=== PATIENT | female | born 1990 | race Caucasian/White ===

== ENCOUNTER 2021-12-12 00:12 | Inpatient (IN) ==
[2021-12-12] MEDS ORDERED: CARBOPROST TROMETHAMINE 250 MCG/ML AMP IM PRN (00:33)
[2021-12-12] MEDS ORDERED: TRANEXAMIC ACID 1,000 MG in SODIUM CHLORIDE 0.9% 100 ML IV PRN (00:33)
[2021-12-12] MEDS ORDERED: ONDANSETRON 4 MG/2 ML VIAL IV PRN (00:33)
[2021-12-12] MEDS ORDERED: miSOPROStoL 200 MCG TABLET RECTAL PRN (00:33)
[2021-12-12] MEDS ORDERED: LACTATED RINGERS 250 ML IV ONE (00:33)
[2021-12-12] MEDS ORDERED: METHYLERGONOVINE 0.2 MG/1 ML AMP IM PRN (00:33)
[2021-12-12] MEDS ORDERED: LACTATED RINGERS 500 ML IV PRN (00:33)
[2021-12-12] MEDS ORDERED: OXYTOCIN/LR 20 UNIT/1,000 ML BAG IV ONE ×3 (00:33→20:56)
[2021-12-12 00:49] LABS: Basophils # 0.1 10*3/uL (0.0-0.2); Basophils % 0.5 % (0.0-0.8); Eosinophils # 0.1 10*3/uL (0.0-0.87); Eosinophils % 0.4 % (0.00-10.9); Hematocrit 35.1 VOL% (35.7-47.0); Hemoglobin 11.8 GM/DL (12.0-16.0); Immature Granulocytes % 0.5 %; Immature Granulocytes Absolute 0.07 #; Lymphocytes # 3.5 10*3/uL (1.4-4.0); Mean Corpuscular HGB Conc 33.6 GM/DL (32-36); Mean Corpuscular Volume 96.7 FL (87-102); Mean Platelet Volume 10.4 FL (9.6-12.0); Monocytes # 0.7 10*3/uL (0.11-0.8); Monocytes % 5.1 % (1.7-12.7); Neutrophils % 68.5 % (38.7-73.9); Platelet Count 253 T/CUMM (130-400); Red Blood Count 3.63 MC/CUMM (3.8-5.5); Red Cell Distribution Width 13.5 % (9.3-17.3); White Blood Count 13.9 T/CUMM (4-12)
[2021-12-12] MEDS: LACTATED RINGERS 1,000 ML IV SCH ×5 (01:21→19:26)
[2021-12-12 03:01] LABS: Squamous Epithelial Cell,Urine Occasional /HPF (0-10)
[2021-12-12 03:02] LABS: Bilirubin,Urine Negative (Negative); Blood, Urine Negative (Negative); Glucose,Urine (UA) Negative (Negative); Ketones,Urine Negative (Negative); Nitrite,Urine Negative (Negative); Protein,Urine Negative (Negative); Urine Appearance Clear (Clear); Urine Color Yellow (Yellow); Urine Specific Gravity <= 1.005 (1.001-1.035); Urine Urobilinogen 0.2 eU/dL (<2.0); Urine pH 5.5 (4.5-8.0)
[2021-12-12] MEDS ORDERED: ePHEDrine 50 MG/ML VIAL IV PRN (09:24)
[2021-12-12] MEDS ORDERED: hydrOXYzine HCL 25 MG/1 ML VIAL IM PRN (09:24)
[2021-12-12] MEDS ORDERED: FAMOTIDINE 20 MG/2 ML VIAL IV ONE (09:24)
[2021-12-12] MEDS ORDERED: NALOXONE 0.4 MG/ML VIAL IV PRN (09:24)
[2021-12-12] MEDS ORDERED: diphenhydrAMINE 50 MG/1 ML VIAL IV PRN ×2 (09:24)
[2021-12-12] MEDS ORDERED: CITRIC ACID/SODIUM CITRATE 30 ML UDCUP PO ONE (09:24)
[2021-12-12] MEDS ORDERED: PROMETHAZINE 25 MG/1 ML VIAL IM ONE (09:24)
[2021-12-12] MEDS ORDERED: fentaNYL 2 MCG/ROPIV 0.2% EPID 100 ML EPIDURAL SCH (09:30)
[2021-12-12] MEDS ORDERED: OXYTOCIN/LR 20 UNIT/1,000 ML BAG IV SCH (09:30)
[2021-12-12] MEDS ORDERED: PROMETHAZINE 25 MG/1 ML VIAL IM PRN (09:38)
[2021-12-12 12:09] LABS: RBC,Urine 2 /HPF (0-4)
[2021-12-12 12:10] LABS: Bilirubin,Urine Negative (Negative); Blood, Urine Negative (Negative); Glucose,Urine (UA) Negative (Negative); Ketones,Urine 15 mg/dL (Negative); Nitrite,Urine Negative (Negative); Protein,Urine Negative (Negative); Urine Appearance Clear (Clear); Urine Color Yellow (Yellow); Urine Specific Gravity 1.025 (1.001-1.035); Urine Urobilinogen 0.2 eU/dL (<2.0); Urine pH 7.5 (4.5-8.0)
[2021-12-12] MEDS ORDERED: TRANEXAMIC ACID 1,000 MG/10 ML VIAL ONE (13:52)
[2021-12-12] MEDS ORDERED: miSOPROStoL 200 MCG TABLET ONE (13:52)
[2021-12-12] MEDS ORDERED: SODIUM CHLORIDE 0.9% 0 ML IV ONE (13:52)
[2021-12-12] MEDS ORDERED: CARBOPROST TROMETHAMINE 250 MCG/ML AMP IM ONE (13:53)
[2021-12-12] MEDS ORDERED: METHYLERGONOVINE 0.2 MG/1 ML AMP ONE (13:53)
[2021-12-12 15:52] LABS: Cord Arterial Blood HCO3 20.3 MMOL/L
[2021-12-12 15:54] LABS: Cord Venous Blood HCO3 22.5 MMOL/L; Cord Venous Blood PO2 24.9
[2021-12-12] MEDS ORDERED: BISACODYL 10 MG SUPP RECTAL PRN (20:56)
[2021-12-12] MEDS ORDERED: HYDROCORTISONE 2.5% RECTAL CREAM 30 GM TUBE TOP PRN (20:56)
[2021-12-12] MEDS ORDERED: oxyCODONE/ACETAMINOPHEN 5-325 MG TABLET PO PRN (20:56)
[2021-12-12] MEDS ORDERED: LANOLIN 50% CREAM 0.3 OZ TUBE TOP PRN (20:56)
[2021-12-12] MEDS ORDERED: DIPH/TET/ACEL PERT BOOSTER VACCINE 0.5 ML VIAL IM ONE (20:56)
[2021-12-12] MEDS ORDERED: ACETAMINOPHEN 325 MG TABLET PO PRN (20:56)
[2021-12-12] MEDS ORDERED: MEASLES/MUMPS/RUBELLA VACCINE 0.5 ML VIAL SUBCUT ONE (20:56)
[2021-12-12] MEDS ORDERED: WITCH HAZEL PADS 100/JAR TOP PRN (20:56)
[2021-12-12] MEDS ORDERED: RHO(D) IMMUNE GLOBULIN 300 MCG SYRINGE IM ONE (20:56)
[2021-12-12] MEDS ORDERED: BENZOCAINE 20%/MENTHOL 0.5% SPRAY 56 GM CAN TOP PRN (20:56)
[2021-12-12] MEDS: DOCUSATE SODIUM 100 MG CAPSULE PO SCH (21:09)
[2021-12-12] MEDS: IBUPROFEN 800 MG TABLET PO PRN (21:13)
[2021-12-13 05:38] LABS: Basophils # 0.1 10*3/uL (0.0-0.2); Basophils % 0.3 % (0.0-0.8); Eosinophils # 0.1 10*3/uL (0.0-0.87); Eosinophils % 0.3 % (0.00-10.9); Hematocrit 33.6 VOL% (35.7-47.0); Hemoglobin 11.3 GM/DL (12.0-16.0); Immature Granulocytes % 0.7 %; Immature Granulocytes Absolute 0.15 #; Lymphocytes # 2.2 10*3/uL (1.4-4.0); Lymphocytes % 10.6 % (21.3-54.2); Mean Corpuscular HGB Conc 33.6 GM/DL (32-36); Mean Platelet Volume 10.8 FL (9.6-12.0); Monocytes # 1.2 10*3/uL (0.11-0.8); Monocytes % 5.7 % (1.7-12.7); Neutrophils % 82.4 % (38.7-73.9); Platelet Count 211 T/CUMM (130-400); Red Cell Distribution Width 13.5 % (9.3-17.3); White Blood Count 20.9 T/CUMM (4-12)
[2021-12-13 06:04] LABS: Eosinophils 1 % (0-10); Lymphocytes 6 % (20-55); Platelet Estimate Adequate; Total Cells Counted 100
[2021-12-13] MEDS: DOCUSATE SODIUM 100 MG CAPSULE PO SCH ×2 (08:29→20:43)
[2021-12-13] MEDS: IBUPROFEN 800 MG TABLET PO PRN ×2 (14:40→22:15)
[2021-12-13] MEDS: oxyCODONE/ACETAMINOPHEN 5-325 MG TABLET PO PRN ×2 (14:41→22:14)
[2021-12-14 07:32] VITALS: BP 95/56
[2021-12-14] MEDS: DOCUSATE SODIUM 100 MG CAPSULE PO SCH (11:15)
== END 2021-12-14 12:00 | disposition home or self-care (01) | DRG 560 ==
LOC: N.LD 00:12 → N.OB 20:50
PROVIDERS: ADMIT Obstetrics & Gynecology; ATTEND Obstetrics & Gynecology